=== PATIENT | male | born 1960 ===

== ENCOUNTER 2020-03-09 08:52 | Day surgery (SDC) | payer OTHER | END 2020-03-09 16:45 | disposition home or self-care (01) | LOC: AMB-ENDOS 08:52 | PROVIDERS: ATTEND Colon & Rectal Surgery | DX: D12.2 Benign neoplasm of ascending colon (principal); K60.1 Chronic anal fissure; Z20.828 Contact with and (suspected) exposure to other viral communicable diseases ==